=== PATIENT | female | born 1945 | race Caucasian/White ===

== ENCOUNTER 2018-01-21 13:20 | Emergency (ER) | payer MEDICARE, OTHER ==
[2018-01-21] MEDS ORDERED: fentaNYL 100 MCG/2 ML SDV IM ONE (14:25)
--- NOTE | 2018-01-21 14:28 | EDM.PDOC ---
ED HPI GENERAL MEDICAL PROBLEM - General Chief Complaint: Lower Extremity Injury/Pain Stated Complaint: LEFT KNEE Time Seen by Provider: 01/21/18 14:22 Source of Information: Reports: Patient, Family, RN Notes Reviewed History Limitations: Reports: No Limitations - History of Present Illness INITIAL COMMENTS - FREE TEXT/NARRATIVE: 72-year-old female presents emergency department today complaint of left knee pain, she does have a history of knee replacement however she was doing a lot of yard work yesterday and woodcutting and feels she may have overworked her knee denies any trauma. Has been using combination abdomen Tylenol with minimal relief. Pain was so severe this morning she was unable to ambulate - Related Data Allergies Allergy/AdvReac Type Severity Reaction Status Date / Time No Known Allergies Allergy Verified 01/21/18 14:04 Past Medical History HEENT History: Reports: Cataract Cardiovascular History: Reports: High Cholesterol - Past Surgical History Musculoskeletal Surgical History: Reports: Knee Replacement, Other (See Below) Other Musculoskeletal Surgeries/Procedures:: FUSSION LOWER BACK L knee replacement last sep Social & Family History - Tobacco Use Smoking Status *Q: Never Smoker - Caffeine Use Caffeine Use: Reports: Coffee - Recreational Drug Use Recreational Drug Use: No Review of Systems - Review of Systems Review Of Systems: See Below Musculoskeletal: Reports: Joint Pain Skin: Reports: No Symptoms Neurological: Reports: No Symptoms ED EXAM, GENERAL - Physical Exam Exam: See Below Free Text/Narrative:: Examination of the left knee I don't appreciate any erythema or edema she is tender to touch along the medial joint line surgical wound is clean dry and intact Joelle's maneuver is negative anterior drawer is negative, cannot bear weight Exam Limited By: No Limitations General Appearance: Alert, Mild Distress Respiratory/Chest: No Respiratory Distress Course - Vital Signs Last Recorded V/S: Last Vital Signs Temp 96.4 F 01/21/18 13:59 Pulse 100 01/21/18 13:59 Resp 20 01/21/18 13:59 BP 132/79 01/21/18 13:59 Pulse Ox - Orders/Labs/Meds Orders: Active Orders 24 hr Category Date Time Status Knee 1V or 2V Lt [CR] Stat Exams 01/21/18 14:25 Taken Meds: Medications Discontinued Medications Generic Name Dose Route Start Last Admin Trade Name Freq PRN Reason Stop Dose Admin Cyclobenzaprine HCl 10 mg 01/21/18 15:45 01/21/18 15:57 Flexeril PO 01/21/18 15:46 10 mg ONETIME ONE Administration Fentanyl 50 mcg 01/21/18 14:25 01/21/18 14:32 Sublimaze IM 01/21/18 14:26 50 mcg ONETIME ONE Administration Hydromorphone HCl 1 mg 01/21/18 15:44 01/21/18 15:57 Dilaudid IM 01/21/18 15:45 1 mg ONETIME ONE Administration Departure - Departure Time of Disposition: 16:39 Disposition: Home, Self-Care 01 Condition: Good Clinical Impression: Left knee pain Qualifiers: Chronicity: acute Qualified Code(s): M25.562 - Pain in left knee - Discharge Information Referrals: PCP,None [Primary Care Provider] - Forms: ED Department Discharge Additional Instructions: Continue to use Advil as needed for pain control, use Percocet for breakthrough pain, use Flexeril as needed for muscle relaxant, Please followup with your primary care provider in 3-5 days if not better, please call return to the emergency department with worsening of symptoms. - My Orders Last 24 Hours: My Active Orders 01/21/18 14:25 Knee 1V or 2V Lt [CR] Stat - Assessment/Plan Last 24 Hours: My Active Orders 01/21/18 14:25 Knee 1V or 2V Lt [CR] Stat Plan: Assessment Acuity = acute Site and laterality = left knee pain Etiology = secondary to overuse injury Manifestations = none Location of injury = Home Lab values = knee x-ray I did review films myself I cannot appreciate any acute process, the official read from radiology is pending Plan She received no relief from the fentanyl initially provided, did get good relief from Dilaudid, plan is to continue nonsteroidal anti-inflammatories in combination with Flexeril 10 mg 1 tab by mouth 3 times a day when necessary total #15, and Percocet 5/325 one tablet by mouth every 4-6 hours when necessary total #10 her follow-up with primary care 3-5 days if no improvement This note was dictated using [employer] recognition software please call with any questions on syntax or grammar.
[2018-01-21] MEDS ORDERED: HYDROmorphone 1 MG/ML Syringe IM ONE (15:44)
[2018-01-21] MEDS ORDERED: Cyclobenzaprine 10 MG Tab PO ONE (15:45)
--- NOTE | 2018-01-22 10:30 | CR ---
Left knee The patient is status post left knee arthroplasty. The prosthetic components are well aligned and sea britton. There is no fracture. There is a moderate joint effusion. Impression: 1. Joint effusion.
--- NOTE | 2018-01-24 08:10 | LETTER ---
01/24/2018 Viri Gomez [id number] [place] [address] RE: LOULOU VIRI ORTIZ : 1945 Dear Josey: You recently were in the ER because you were having knee pain on the left side. It was my understanding you had been outside doing a fair amount of yard work and may have overdone it at that time. An x-ray was obtained, which shows good alignment of the components of your knee replacement. The only finding that the radiologist did see when he read their x-ray is that there was a small amount of joint fluid present. This is most likely due to somewhat of an inflammatory process around the knee replacement. At this time, if your pain is persistent, you may want to have it rechecked in the light of the joint effusion. If you have questions of me, feel free to contact us. Sincerely, /[id number]
== END 2018-01-21 16:53 | disposition home or self-care (01) ==
LOC: JP.ED 13:20
DX: M25.562 Pain in left knee (principal); X50.3XXA Overexertion from repetitive movements, initial encounter
CPT/HCPCS: 73560; 96372; 99283; A9270; J1170; J3010